=== PATIENT | female | born 1980 | race Two or more races ===

== ENCOUNTER → 2016-06-08 | Outpatient (CLI) | payer BC ==
--- NOTE | 2016-06-08 17:46 | US ---
Clinical History: 35-year-old female with swelling, discoloration, and shoulder pain who has had a ch est port on the left since January 2016, currently functioning. Rule out deep or superficial venous clot. Technique: A high frequency transducer was used for imaging and Doppler study of the veins of the lef t upper extremity. Pulsed Doppler and color Doppler were utilized, along with various maneuvers to assess flow in the veins. Cursory evaluation of the contralateral arm was obtained for comparison pur poses. COMPARISON STUDY: None. Findings: The left basilic vein, cephalic vein, and the brachial vein(s) are normally compressible, and have normal waveforms. However, there is clot in the left axillary vein and surrounding the visua lized left subclavian venous catheter. The internal jugular vein is normally compressible, and has a normal Doppler flow. There is no superficial venous thrombosis identified. There is no localized flui d collection. Impression: Deep venous thrombosis involving the left axillary and left subclavian veins. Results were conveyed to Dr. Jasmina Rucker, as requested. A Document Only message has been documented for Meche Rucker MD in the [employer] system on 06/08/2016 17:43, Message ID [id number].
== END ==
LOC: FIMAGING 16:52
PROVIDERS: ATTEND Surgery
DX: I82.A12 Acute embolism and thrombosis of left axillary vein (principal); I82.B12 Acute embolism and thrombosis of left subclavian vein; Z95.828 Presence of other vascular implants and grafts

== ENCOUNTER → 2016-07-27 | Outpatient (CLI) | payer BC | LOC: BRMIMAGING 09:06 | PROVIDERS: ATTEND Internal Medicine Hematology & Oncology | DX: Z13.820 Encounter for screening for osteoporosis (principal); C50.919 Malignant neoplasm of unspecified site of unspecified female breast ==

== ENCOUNTER → 2016-11-07 | Outpatient (CLI) | payer BC | LOC: FIMAGING 12:48 | PROVIDERS: ATTEND Internal Medicine Hematology & Oncology | DX: Z85.3 Personal history of malignant neoplasm of breast (principal) | CPT/HCPCS: G0204 ==

== ENCOUNTER → 2017-01-02 | Outpatient (CLI) | payer BC | LOC: BRMIMAGING 08:41 | PROVIDERS: ATTEND Nurse Practitioner | DX: C50.411 Malignant neoplasm of upper-outer quadrant of right female breast (principal); R10.11 Right upper quadrant pain | CPT/HCPCS: 76641-PO; 76705-PO ==

== ENCOUNTER → 2017-10-31 | Outpatient (CLI) | payer BC, MEDICAID | LOC: FIMAGING 13:31 | PROVIDERS: ATTEND Internal Medicine Hematology & Oncology | DX: Z12.31 Encounter for screening mammogram for malignant neoplasm of breast (principal); Z85.3 Personal history of malignant neoplasm of breast ==

== ENCOUNTER → 2018-03-12 | Outpatient (CLI) | payer BC ==
[~2018-03-12] MED LIST: GADOBUTROL 10 ML VIAL IVP ONE
== END ==
LOC: FIMAGING 08:04
DX: M48.02 Spinal stenosis, cervical region (principal); M50.321 Other cervical disc degeneration at C4-C5 level; M50.221 Other cervical disc displacement at C4-C5 level; M51.36 Other intervertebral disc degeneration, lumbar region; M51.26 Other intervertebral disc displacement, lumbar region; M48.061 Spinal stenosis, lumbar region without neurogenic claudication
CPT/HCPCS: A9585

== ENCOUNTER → 2018-06-17 | Outpatient (CLI) | payer BC | LOC: BRMIMAGING 10:14 | PROVIDERS: ATTEND Internal Medicine Hematology & Oncology | DX: Z12.31 Encounter for screening mammogram for malignant neoplasm of breast (principal); Z85.3 Personal history of malignant neoplasm of breast | CPT/HCPCS: 76641-PO ==

== ENCOUNTER → 2018-09-17 | Outpatient (CLI) | payer BC | LOC: FIMAGING 09:50 | PROVIDERS: ATTEND Advanced Practice Midwife | DX: O09.513 Supervision of elderly primigravida, third trimester (principal); O09.293 Supervision of pregnancy with other poor reproductive or obstetric history, third trimester; Z3A.29 29 weeks gestation of pregnancy ==

== ENCOUNTER → 2018-10-15 | Outpatient (CLI) | payer BC | LOC: FIMAGING 12:25 ==

== ENCOUNTER 2018-11-12 06:30 | Day surgery (SDC) | payer BC | END 2018-11-12 10:13 | disposition home or self-care (01) | LOC: FOBOP 06:30 ==